=== PATIENT | male | born 1940 | race Caucasian/White ===

== ENCOUNTER → 2021-09-14 | Outpatient (CLI) | payer MEDICARE ==
--- NOTE | 2021-09-14 16:58 | XR ---
EXAMINATION TYPE: XR lumbosacral spine min 4V DATE OF EXAM: 09/14/2021 COMPARISON: None HISTORY: Low back pain TECHNIQUE: 5V lumbar spine FINDINGS: There are 5 lumbar-type vertebral bodies. The pedicles are intact. Scoliosis is present. There is a g rade 1 spondylolisthesis of L5 anteriorly on S1. Spondylosis is present. There are multilevel degenerative disc changes. Greatest is at L2-3 with some vacuum disc phenomenon and loss of disc height. Disc space narrowing is present L3-4 posteriorly L4-5 and L5-S1 and L1-L2 No spondylolytic defects are evident. Note is made of vascular calcification within the aorta. IMPRESSIONS: 1. Degenerative disc changes. 2. Grade 1 spondylolisthesis of L5 anterior on S1.
== END | disposition home or self-care (01) ==
LOC: RADXRYALE 15:32
PROVIDERS: ATTEND Physician Assistant
DX: M51.26 Other intervertebral disc displacement, lumbar region (principal); M43.17 Spondylolisthesis, lumbosacral region
CPT/HCPCS: 72110